=== PATIENT | female | born 1970 | race Caucasian/White ===

== ENCOUNTER 2018-10-25 02:11 | Emergency (ER) | payer MEDICARE, MEDICAID ==
[~2018-10-25] VITALS: Ht 157.5 cm; Wt 55.0 kg
[2018-10-25] MEDS ORDERED: dexamethasone 4mg tablet PO ONE (06:00)
[2018-10-25] MEDS ORDERED: albuterol 2.5 MG/3 ML nebule NEB ONE (06:00)
[2018-10-25] MEDS ORDERED: diphenhydrAMINE 25 MG/10 ML UD oral solution PO ONE (06:00)
[2018-10-25] MEDS ORDERED: ALBU6.7H INH (06:02)
[2018-10-25 07:20] VITALS: BP 135/81
== END 2018-10-25 07:23 | disposition home or self-care (01) ==
LOC: ER 02:14
DX: J04.0 Acute laryngitis (principal); F17.210 Nicotine dependence, cigarettes, uncomplicated; E11.9 Type 2 diabetes mellitus without complications; Z71.6 Tobacco abuse counseling; Z88.8 Allergy status to other drugs, medicaments and biological substances; Z79.899 Other long term (current) drug therapy; Z59.0 Homelessness; Z56.0 Unemployment, unspecified
CPT/HCPCS: 87081; 87880; 93005; 94640; 94760; 99284; 99406; J8540; Q0163

== ENCOUNTER 2019-07-08 11:36 | Emergency (ER) | payer MEDICARE, MEDICAID ==
[~2019-07-08] VITALS: Ht 157.5 cm; Wt 65.0 kg
[~2019-07-08 11:36] MED LIST: ALBU6.7H9 INH
[2019-07-08 12:23] VITALS: BP 133/64
[2019-07-08] MEDS ORDERED: gentamicin 0.1% topical ointment 15gm TP SCH (13:20)
== END 2019-07-08 14:49 | disposition home or self-care (01) ==
LOC: ER 11:37
DX: S01.81XD Laceration without foreign body of other part of head, subsequent encounter (principal); L97.229 Non-pressure chronic ulcer of left calf with unspecified severity; E11.9 Type 2 diabetes mellitus without complications; F17.200 Nicotine dependence, unspecified, uncomplicated; Z59.0 Homelessness; Z56.0 Unemployment, unspecified; Z88.8 Allergy status to other drugs, medicaments and biological substances; V49.88XD Car occupant (driver) (passenger) injured in other specified transport accidents, subsequent encounter
CPT/HCPCS: 99283

== ENCOUNTER 2020-01-17 17:32 | Emergency (ER) | payer MEDICARE, MEDICAID ==
[~2020-01-17] VITALS: Ht 154.9 cm; Wt 63.0 kg
[2020-01-17] MEDS ORDERED: clindamycin 600mg/D5W 50ml 50 ML IV STA (20:39)
[2020-01-17] MEDS ORDERED: dexamethasone sod phosphate 10mg/ml inj IV STA (20:39)
[2020-01-17] MEDS ORDERED: normal saline 1000ML IV soln IV ONE (20:40)
[2020-01-17 21:24] LABS: BASOPHILS # (AUTO) 0.1 X10'3 (0-0.2); BASOPHILS % (AUTO) 0.5 % (0-1); EOSINOPHILS # (AUTO) 0.1 X10'3 (0-0.9); HEMATOCRIT 41.9 % (35.0-45.0); HEMOGLOBIN 14.3 g/dl (12.0-16.0); LYMPHOCYTES # (AUTO) 1.3 X10'3 (1.1-4.8); LYMPHOCYTES % (AUTO) 8.9 % (21-51); MEAN CORPUSCULAR HEMOGLOBIN 27.6 PG (27.0-31.0); MEAN CORPUSCULAR VOLUME 81.1 FL (78-98); MEAN PLATELET VOLUME 8.2 FL (7.4-10.4); MONOCYTES % (AUTO) 6.9 % (2-12); NEUTROPHILS # (AUTO) 11.8 X10'3 (1.8-7.7); NEUTROPHILS % (AUTO) 82.7 % (42-75); PLATELET COUNT 272 X10'3 (140-440); RED BLOOD COUNT 5.17 X10'6 (4.20-5.60); WHITE BLOOD COUNT 14.2 X10'3 (4.5-11.0)
[2020-01-17 21:27] LABS: ALANINE AMINOTRANSFERASE 16 U/L (12-78); ALBUMIN 3.3 G/DL (3.4-5.0); ALBUMIN/GLOBULIN RATIO 0.8 (1.1-1.5); ALKALINE PHOSPHATASE 173 IU/L (46-116); ANION GAP 6 (8-16); ASPARTATE AMINO TRANSFERASE 8 U/L (10-37); BILIRUBIN,TOTAL 0.9 MG/DL (0.1-1.0); BLOOD UREA NITROGEN 9 MG/DL (7-18); BUN/CREATININE RATIO 9.9 (6.6-38.0); CALCIUM 9.1 MG/DL (8.5-10.1); CHLORIDE 100 MMOL/L (99-107); CREATININE 0.91 MG/DL (0.40-0.90); GLUCOSE 321 MG/DL (70-104); MAGNESIUM 1.8 MG/DL (1.5-2.4); POTASSIUM 3.7 MMOL/L (3.5-5.1); SODIUM 134 MMOL/L (135-145); TOTAL CARBON DIOXIDE 27.7 MMOL/L (24-32); TOTAL PROTEIN 7.4 G/DL (6.4-8.2); eGFR 66 ML/MIN
[2020-01-17] MEDS ORDERED: iohexol 300mg/ml 100ml inj. ONE (21:30)
[2020-01-17 21:44] LABS: CLARITY,URINE CLEAR (Clear); COLOR,URINE YELLOW (Yellow); GLUCOSE, URINE >=1000 mg/dl (Neg); KETONES,URINE TRACE mg/dl (Neg); LEUKOCYTE ESTERASE ,URINE NEGATIVE (Neg); NITRITES, URINE NEGATIVE (Neg); OCCULT BLOOD,URINE NEGATIVE (Neg); PROTEIN,URINE TRACE mg/dl (Neg)
[2020-01-17 22:03] LABS: UA COLLECTION TYPE CLN CATCH MIDSTREAM
[2020-01-17 22:04] LABS: BACTERIA,URINE FEW /HPF (Neg); RBC,URINE 0-2 /HPF (0-2); SQUAMOUS EPITHELIAL CELL,UR FEW /LPF (FEW); WBC,URINE 0-4 /HPF (0-4)
[2020-01-17 22:49] LABS: URINE AMPHETAMINE SCREEN POSITIVE (Neg); URINE BARBITUATE SCREEN NEGATIVE (Neg); URINE BENZODIAZEPINES SCREEN NEGATIVE (Neg); URINE CANNABINOID SCREEN NEGATIVE (Neg); URINE COCAINE SCREEN NEGATIVE (Neg); URINE METHADONE SCREEN NEGATIVE (Neg); URINE OPIATE SCREEN NEGATIVE (Neg); URINE PHENCYCLIDINE SCREEN NEGATIVE (Neg)
[2020-01-17] MEDS ORDERED: LIDOcaine Viscous 15ml cup MM ONE (22:55)
[2020-01-17] MEDS ORDERED: fentaNYL/PF 50MCG/1 ML 2ML syringe IV ONE (22:55)
[2020-01-17] MEDS ORDERED: LIDOcaine 1% W/epiNEPHrine 1:200,000 10ml vial IJ ONE (22:55)
[2020-01-18] MEDS ORDERED: ampicillin/sulbac 3gm/NS 100ml 100 ML IV STA (00:24)
[2020-01-18] MEDS ORDERED: NO HOME MEDS (00:36)
--- NOTE | 2020-01-18 00:36 | NUR ---
patient reports she takes no home meds
[2020-01-18] MEDS ORDERED: HYDR-4383 PO (00:52)
[2020-01-18] MEDS ORDERED: ONDA4TAB6 PO (00:52)
[2020-01-18] MEDS ORDERED: AMOX-422 PO (00:52)
--- NOTE | 2020-01-18 01:56 | NUR ---
GAVE PT ANOTHER BLANKET AND DR PALMER SAID I COULD GIVE HER WATER TO DRINK. I SET PT HOB BACK A LITTLE, GAVE HER A PILLOW AND PLACED TISSUES NEXT TO HER. I CLOSED HER DOORS SO SHE CAN REST.
--- NOTE | 2020-01-18 04:48 | NUR ---
pt has continued to sleep without any apparent distress.
[2020-01-18 06:03] VITALS: BP 133/83
== END 2020-01-18 06:04 | disposition home or self-care (01) ==
LOC: ER 17:34
DX: J36 Peritonsillar abscess (principal); E11.9 Type 2 diabetes mellitus without complications; Z59.0 Homelessness; Z56.0 Unemployment, unspecified; Z88.8 Allergy status to other drugs, medicaments and biological substances; Z79.2 Long term (current) use of antibiotics; Z79.899 Other long term (current) drug therapy
CPT/HCPCS: 36415; 42700; 70491; 71045; 80053; 80305; 81001; 83605; 83735; 84145; 85025; 87040; 93005; 96365; 96367; 96375; 99285; J1100; J3010; J7030; Q9967; J0295; J3490

== ENCOUNTER 2020-07-01 09:30 | Outpatient (CLI) | payer MEDICARE, MEDICAID ==
[~2020-07-01 09:30] MED LIST changes: -ALBU6.7H9 INH; +AMA1T PO; +CIPR-230 PO; +LACT1CAP26 PO; +LINA5TAB4 PO; +LISI10TA4 PO; +METF-950 PO
[2020-07-01] MEDS ORDERED: LIDOcaine 2% 5ml jelly ONE ×2 (10:00→11:48)
== END 2020-07-01 23:59 | disposition home or self-care (01) ==
LOC: WOUND CARE 09:30 → EDSTATUS 09:40 → WOUND CARE 23:59
PROVIDERS: ATTEND Nurse Practitioner
DX: T81.89XA Other complications of procedures, not elsewhere classified, initial encounter (principal); E11.621 Type 2 diabetes mellitus with foot ulcer; L97.512 Non-pressure chronic ulcer of other part of right foot with fat layer exposed; S90.811A Abrasion, right foot, initial encounter; E11.622 Type 2 diabetes mellitus with other skin ulcer; L98.492 Non-pressure chronic ulcer of skin of other sites with fat layer exposed; E11.69 Type 2 diabetes mellitus with other specified complication; M86.8X4 Other osteomyelitis, hand; E11.40 Type 2 diabetes mellitus with diabetic neuropathy, unspecified; E11.65 Type 2 diabetes mellitus with hyperglycemia; F17.200 Nicotine dependence, unspecified, uncomplicated; Z79.899 Other long term (current) drug therapy; Z90.710 Acquired absence of both cervix and uterus; Z88.8 Allergy status to other drugs, medicaments and biological substances; Z79.84 Long term (current) use of oral hypoglycemic drugs; X58.XXXA Exposure to other specified factors, initial encounter; Y93.89 Activity, other specified; Y92.89 Other specified places as the place of occurrence of the external cause; Y99.8 Other external cause status; Y83.8 Other surgical procedures as the cause of abnormal reaction of the patient, or of later complication, without mention of misadventure at the time of the procedure; Y92.238 Other place in hospital as the place of occurrence of the external cause
CPT/HCPCS: 82948; G0463

== ENCOUNTER 2020-07-09 12:12 | Inpatient (IN) | payer MEDICARE, MEDICAID ==
[~2020-07-09] VITALS: Ht 154.9 cm; Wt 60.8 kg
[2020-07-09] MEDS ORDERED: LIDOcaine 2% 5ml jelly ONE (13:16)
[2020-07-09] MEDS ORDERED: LIDOcaine 1%/PF 5ML 10 MG/ML VIAL ONE (13:16)
[2020-07-09] MEDS ORDERED: diphenhydrAMINE 25mg capsule PO PRN (15:35)
[2020-07-09] MEDS ORDERED: bisacodyl 10mg suppository rectal RC PRN (15:35)
[2020-07-09] MEDS ORDERED: acetaminophen 650mg rectal suppository RC PRN (15:35)
[2020-07-09] MEDS ORDERED: glucagon, human recombinant 1mg kit SUBCUT PRN (15:35)
[2020-07-09] MEDS ORDERED: HYDROcodone/acetaminophen 5mg/325mg tablet PO PRN (15:35)
[2020-07-09] MEDS ORDERED: mag hydrox/Alum hydrox/simeth 30ml oral suspension PO PRN (15:35)
[2020-07-09] MEDS ORDERED: metoclopramide 5 mg/ml inj IV PRN (15:35)
[2020-07-09] MEDS ORDERED: MESSAGE TO PHARMACY PO ONE (15:35)
[2020-07-09] MEDS ORDERED: potassium CL 10mEq/100ml bag 100 ML IV PRN ×2 (15:35)
[2020-07-09] MEDS ORDERED: dextrose ORAL solution 15 GM/59 ML bottle PO PRN ×2 (15:35)
[2020-07-09] MEDS ORDERED: HYDROcodone/acetaminophen 10/325mg tab PO PRN (15:35)
[2020-07-09] MEDS ORDERED: magnesium 2GM in 50ml NS 50 ML IV PRN (15:35)
[2020-07-09] MEDS ORDERED: ondansetron/PF 4mg/2ml inj IV PRN (15:35)
[2020-07-09] MEDS ORDERED: magnesium 4gm in 100ml NS 100 ML IV PRN (15:35)
[2020-07-09] MEDS ORDERED: acetaminophen 325mg tablet PO PRN ×2 (15:35)
[2020-07-09] MEDS ORDERED: magnesium Cl slow-release 64mg tablet PO PRN (15:35)
[2020-07-09] MEDS ORDERED: morphine 2 MG/ML inj. syringe IV PRN ×2 (15:35)
[2020-07-09] MEDS: cefepime 1GM/NS ADD-VANTAGE 100 ML IV SCH ×3 (15:35→19:42)
[2020-07-09] MEDS: normal saline 1000ml 1,000 ML IV SCH (15:35)
[2020-07-09] MEDS ORDERED: potassium Cl 20 mEq SR tablet PO PRN ×2 (15:35)
[2020-07-09] MEDS ORDERED: magnesium hydroxide 30ml (MOM) UD suspension PO PRN (15:35)
[2020-07-09] MEDS ORDERED: dextrose 50%-water 50ml dispensing syringe IV PRN ×2 (15:35)
[2020-07-09] MEDS ORDERED: vancomycin/NS 1 GM ADD-VANTAGE 250 ML X 1 DOSE IV ONE (15:55)
[2020-07-09 16:33] LABS: HEMOGLOBIN A1C 9.9 % (4.5-6.2); eGFR 89 ML/MIN
[2020-07-09 16:40] LABS: ALANINE AMINOTRANSFERASE 23 U/L (12-78); ALBUMIN 3.6 G/DL (3.4-5.0); ALBUMIN/GLOBULIN RATIO 0.9 (1.1-1.5); ALKALINE PHOSPHATASE 149 IU/L (46-116); ANION GAP 9 (8-16); ASPARTATE AMINO TRANSFERASE 9 U/L (10-37); BILIRUBIN,TOTAL 0.7 MG/DL (0.1-1.0); BLOOD UREA NITROGEN 17 MG/DL (7-18); BUN/CREATININE RATIO 25.8 (6.6-38.0); CHLORIDE 101 MMOL/L (99-107); CREATININE 0.66 MG/DL (0.40-0.90); ETHANOL < 0.010 GM/DL (0.0-0.010); GLUCOSE 280 MG/DL (70-104); SODIUM 137 MMOL/L (135-145); TOTAL CARBON DIOXIDE 27.3 MMOL/L (24-32); TOTAL PROTEIN 7.7 G/DL (6.4-8.2); eGFR > 90 ML/MIN
[2020-07-09 17:00] VITALS: BP 157/67
[2020-07-09] MEDS ORDERED: LINA5TAB4 PO (17:08)
[2020-07-09] MEDS ORDERED: ALBU18HF2 PO (17:08)
[2020-07-09] MEDS ORDERED: GLIM1TAB PO (17:08)
[2020-07-09] MEDS ORDERED: METF-436 PO (17:08)
[2020-07-09 17:25] LABS: BASOPHILS % (AUTO) 0.6 % (0-1); EOSINOPHILS # (AUTO) 0.1 X10'3 (0-0.9); EOSINOPHILS % (AUTO) 1.5 % (0-6); HEMATOCRIT 39.5 % (35.0-45.0); HEMOGLOBIN 13.3 g/dl (12.0-16.0); MEAN CORPUSCULAR HEMOGLOBIN 26.8 PG (27.0-31.0); MEAN CORPUSCULAR HGB CONC 33.6 g/dL (33.0-36.5); MEAN CORPUSCULAR VOLUME 79.8 FL (78-98); MEAN PLATELET VOLUME 8.3 FL (7.4-10.4); MONOCYTES # (AUTO) 0.5 X10'3 (0-0.9); NEUTROPHILS # (AUTO) 5.1 X10'3 (1.8-7.7); NEUTROPHILS % (AUTO) 74.9 % (42-75); PLATELET COUNT 321 X10'3 (140-440); RED BLOOD COUNT 4.95 X10'6 (4.20-5.60); RED CELL DISTRIBUTION WIDTH 13.9 % (11.5-14.5); WHITE BLOOD COUNT 6.8 X10'3 (4.5-11.0)
[2020-07-09 18:00] VITALS: BP 148/72
--- NOTE | 2020-07-09 18:52 | NUR ---
Problems reprioritized. Patient report given, questions answered & plan of care reviewed with CALVIN Escoto. Pt arrived to floor around 1630. A&O x4. IV placed, ABX running at this time. V/S 98.3, 97,16, 96%, 154/64.
[2020-07-09] MEDS: insulin Lispro (HumaLOG) vial - multi-dose SQ SCH (19:39)
[2020-07-09] MEDS: K and/or MAG REPLACEMENT MC SCH (20:00)
[2020-07-09] MEDS: insulin glargine (Lantus) pen - multi-dose SQ SCH (21:01)
[2020-07-09] MEDS: heparin, porcine 5000 units/ml vial SQ SCH (21:02)
[2020-07-10] VITALS: BP 132/77
[2020-07-10] MEDS: normal saline 1000ml 1,000 ML IV SCH ×3 (01:55→14:28)
[2020-07-10] MEDS ORDERED: vancomycin/NS 1 GM ADD-VANTAGE 250 ML X 1 DOSE IV SCH (04:00)
[2020-07-10 06:18] LABS: BASOPHILS % (AUTO) 0.8 % (0-1); EOSINOPHILS # (AUTO) 0.3 X10'3 (0-0.9); EOSINOPHILS % (AUTO) 4.4 % (0-6); HEMATOCRIT 39.3 % (35.0-45.0); HEMOGLOBIN 13.1 g/dl (12.0-16.0); LYMPHOCYTES # (AUTO) 1.4 X10'3 (1.1-4.8); LYMPHOCYTES % (AUTO) 24.4 % (21-51); MEAN CORPUSCULAR HEMOGLOBIN 26.8 PG (27.0-31.0); MEAN CORPUSCULAR HGB CONC 33.4 g/dL (33.0-36.5); MEAN CORPUSCULAR VOLUME 80.2 FL (78-98); MEAN PLATELET VOLUME 7.8 FL (7.4-10.4); MONOCYTES # (AUTO) 0.5 X10'3 (0-0.9); MONOCYTES % (AUTO) 8.8 % (2-12); NEUTROPHILS # (AUTO) 3.5 X10'3 (1.8-7.7); NEUTROPHILS % (AUTO) 61.6 % (42-75); PLATELET COUNT 285 X10'3 (140-440); RED CELL DISTRIBUTION WIDTH 14.2 % (11.5-14.5); WHITE BLOOD COUNT 5.7 X10'3 (4.5-11.0)
[2020-07-10 06:31] LABS: ALANINE AMINOTRANSFERASE 24 U/L (12-78); ALBUMIN/GLOBULIN RATIO 0.8 (1.1-1.5); ALKALINE PHOSPHATASE 118 IU/L (46-116); ANION GAP 6 (8-16); ASPARTATE AMINO TRANSFERASE 19 U/L (10-37); BILIRUBIN,TOTAL 0.5 MG/DL (0.1-1.0); BLOOD UREA NITROGEN 13 MG/DL (7-18); BUN/CREATININE RATIO 18.8 (6.6-38.0); CALCIUM 8.7 MG/DL (8.5-10.1); CHLORIDE 107 MMOL/L (99-107); CREATININE 0.69 MG/DL (0.40-0.90); GLUCOSE 131 MG/DL (70-104); MAGNESIUM 1.9 MG/DL (1.5-2.4); PHOSPHORUS 3.8 MG/DL (2.3-4.5); SODIUM 140 MMOL/L (135-145); TOTAL PROTEIN 6.9 G/DL (6.4-8.2); eGFR 90 ML/MIN
[2020-07-10 06:33] LABS: POTASSIUM 4.4 MMOL/L (3.5-5.1)
[2020-07-10] MEDS: cefepime 1GM/NS ADD-VANTAGE 100 ML IV SCH (07:24)
[2020-07-10] MEDS: K and/or MAG REPLACEMENT MC SCH ×2 (07:25→19:03)
[2020-07-10] MEDS: heparin, porcine 5000 units/ml vial SQ SCH ×2 (07:25→19:07)
[2020-07-10 07:40] VITALS: BP 141/82
[2020-07-10] MEDS: insulin Lispro (HumaLOG) vial - multi-dose SQ SCH ×3 (09:31→19:14)
[2020-07-10] MEDS: ceFAZolin 2gm in dextrose, iso 50 ML IV SCH ×2 (11:05→17:36)
--- NOTE | 2020-07-10 11:33 | NUR ---
PAGER ID: [phone] MESSAGE: Gianni Workman 350A: FYI. + blood culture left arm, aerobic bottle, gram+ cocci in clusters. thanks! maxine [id number]
[2020-07-10 11:39] LABS: CLARITY,URINE SLIGHTLY CLOUDY (Clear); COLOR,URINE YELLOW (Yellow); GLUCOSE, URINE NEGATIVE (Neg); KETONES,URINE NEGATIVE (Neg); LEUKOCYTE ESTERASE ,URINE NEGATIVE (Neg); NITRITES, URINE NEGATIVE (Neg); OCCULT BLOOD,URINE NEGATIVE (Neg); PH,URINE 5.5 (4.8-8.0); PROTEIN,URINE NEGATIVE (Neg); UROBILINOGEN,URINE 0.2 E.U/dL (0.2-1.0)
[2020-07-10 11:46] LABS: UA COLLECTION TYPE NON-SPECIFIED
[2020-07-10 11:52] LABS: URINE AMPHETAMINE SCREEN POSITIVE (Neg); URINE BARBITUATE SCREEN NEGATIVE (Neg); URINE BENZODIAZEPINES SCREEN NEGATIVE (Neg); URINE CANNABINOID SCREEN NEGATIVE (Neg); URINE COCAINE SCREEN NEGATIVE (Neg); URINE METHADONE SCREEN NEGATIVE (Neg); URINE OPIATE SCREEN NEGATIVE (Neg); URINE PHENCYCLIDINE SCREEN NEGATIVE (Neg)
[2020-07-10 11:53] LABS: MUCUS STRANDS FEW /LPF (Neg); SQUAMOUS EPITHELIAL CELL,UR MODERATE /LPF (FEW)
[2020-07-10 11:54] LABS: BACTERIA,URINE FEW /HPF (Neg); RBC,URINE 0-2 /HPF (0-2); WBC,URINE 0-4 /HPF (0-4)
[2020-07-10 12:06] VITALS: BP 124/75
--- NOTE | 2020-07-10 12:24 | NUR ---
Pt with T2DM, current A1c is 9.9%. Pt recently admitted and seen by RD 06/27 for extensive written and verbal protein and DM educations. A1c 10.3% at that time and RD contact information was provided. No further education warranted at this time. Pt currently on a CHO controlled diet documented with 100% PO intake. At last admit pt still with c/o hunger with 100% PO intake and agreed to double protein TID for satiety. Pt also agreed to mechanical soft diet with chopped meat d/t difficulty chewing d/t missing teeth and difficulty cutting food d/t left thumb injury. D/w dietary to resume previous meal preferences to optimize PO intake during admission. Will continue to follow. Addendum: 07/10/20 at [address] Amended: Links added.
[2020-07-10] MEDS ORDERED: MESSAGE TO NURSING IV ONE (15:55)
[2020-07-10] MEDS: vancomycin/NS 1 GM ADD-VANTAGE 250 ML IV SCH (15:57)
[2020-07-10 18:15] VITALS: BP 138/82
--- NOTE | 2020-07-10 18:21 | NUR ---
Problems reprioritized. Patient report given, questions answered & plan of care reviewed with CALVIN FIELD.
--- NOTE | 2020-07-10 18:21 | NUR ---
Patient in room [facility] 350. I have received report from CALVIN Kim and had the opportunity to ask questions and assume patient care.
[2020-07-10] MEDS: lactobacillus rhamnosus 10,000 MMU CELLS/CAPSULE PO SCH (19:07)
[2020-07-10] MEDS: insulin glargine (Lantus) pen - multi-dose SQ SCH (22:39)
[2020-07-11 00:15] VITALS: BP 116/66
[2020-07-11] MEDS: ceFAZolin 2gm in dextrose, iso 50 ML IV SCH ×3 (02:17→17:56)
[2020-07-11] MEDS: normal saline 1000ml 1,000 ML IV SCH ×2 (02:18→15:55)
[2020-07-11] MEDS ORDERED: VANCOMYCIN LEVEL IV ONE ×2 (03:30)
[2020-07-11 03:48] LABS: BASOPHILS % (AUTO) 0.8 % (0-1); EOSINOPHILS # (AUTO) 0.2 X10'3 (0-0.9); EOSINOPHILS % (AUTO) 4.2 % (0-6); HEMATOCRIT 39.3 % (35.0-45.0); HEMOGLOBIN 13.1 g/dl (12.0-16.0); LYMPHOCYTES # (AUTO) 1.7 X10'3 (1.1-4.8); LYMPHOCYTES % (AUTO) 32.6 % (21-51); MEAN CORPUSCULAR HEMOGLOBIN 26.8 PG (27.0-31.0); MEAN CORPUSCULAR HGB CONC 33.4 g/dL (33.0-36.5); MEAN CORPUSCULAR VOLUME 80.4 FL (78-98); MEAN PLATELET VOLUME 7.8 FL (7.4-10.4); MONOCYTES # (AUTO) 0.5 X10'3 (0-0.9); NEUTROPHILS # (AUTO) 2.8 X10'3 (1.8-7.7); NEUTROPHILS % (AUTO) 53.4 % (42-75); PLATELET COUNT 276 X10'3 (140-440); RED BLOOD COUNT 4.89 X10'6 (4.20-5.60); RED CELL DISTRIBUTION WIDTH 14.3 % (11.5-14.5); WHITE BLOOD COUNT 5.3 X10'3 (4.5-11.0)
[2020-07-11 04:01] LABS: ALANINE AMINOTRANSFERASE 15 U/L (12-78); ALBUMIN/GLOBULIN RATIO 0.8 (1.1-1.5); ALKALINE PHOSPHATASE 120 IU/L (46-116); ANION GAP 5 (8-16); ASPARTATE AMINO TRANSFERASE 10 U/L (10-37); BILIRUBIN,TOTAL 0.2 MG/DL (0.1-1.0); BLOOD UREA NITROGEN 16 MG/DL (7-18); BUN/CREATININE RATIO 19.3 (6.6-38.0); CALCIUM 8.7 MG/DL (8.5-10.1); CHLORIDE 106 MMOL/L (99-107); CREATININE 0.83 MG/DL (0.40-0.90); GLUCOSE 197 MG/DL (70-104); PHOSPHORUS 3.6 MG/DL (2.3-4.5); POTASSIUM 4.1 MMOL/L (3.5-5.1); SODIUM 140 MMOL/L (135-145); TOTAL CARBON DIOXIDE 29.4 MMOL/L (24-32); TOTAL PROTEIN 6.7 G/DL (6.4-8.2); VANCOMYCIN,TROUGH 11.1 UG/ML (6.0-14.0); eGFR 73 ML/MIN
[2020-07-11] MEDS: vancomycin/NS 1 GM ADD-VANTAGE 250 ML IV SCH (04:05)
--- NOTE | 2020-07-11 06:18 | NUR ---
Problems reprioritized. Patient report given, questions answered & plan of care reviewed with CALVIN Kim.
[2020-07-11 07:30] VITALS: BP 113/83
[2020-07-11] MEDS: heparin, porcine 5000 units/ml vial SQ SCH ×2 (07:31→20:36)
[2020-07-11] MEDS: lactobacillus rhamnosus 10,000 MMU CELLS/CAPSULE PO SCH ×2 (07:31→20:36)
[2020-07-11] MEDS: K and/or MAG REPLACEMENT MC SCH ×2 (07:31→20:00)
[2020-07-11] MEDS: insulin Lispro (HumaLOG) vial - multi-dose SQ SCH ×3 (08:18→18:09)
[2020-07-11 11:37] VITALS: BP 102/47
[2020-07-11] MEDS: VANCOmycin 1250MG/NS 250ml Bag 250 ML IV SCH (15:55)
--- NOTE | 2020-07-11 18:10 | NUR ---
Patient in room [facility] 350. I have received report from CHRIS SIMPSON and had the opportunity to ask questions and assume patient care. Addendum: 07/11/20 at 1902 by Chica Montenegro RN Amended: Links added.
--- NOTE | 2020-07-11 18:40 | NUR ---
Problems reprioritized. Patient report given, questions answered & plan of care reviewed with CALVIN Coto.
[2020-07-11 19:15] VITALS: BP 111/61
[2020-07-11] MEDS: insulin glargine (Lantus) pen - multi-dose SQ SCH (20:48)
--- NOTE | 2020-07-11 21:05 | NUR ---
pt took hs medications and covered with long acting insulin. teaching done on importance of taking her medications. dressings dry and intact.
--- NOTE | 2020-07-11 23:10 | NUR ---
resting eyes closed without changes at this time.
[2020-07-12] VITALS: BP 147/73
[2020-07-12] MEDS: ceFAZolin 2gm in dextrose, iso 50 ML IV SCH ×3 (02:11→20:10)
--- NOTE | 2020-07-12 02:13 | NUR ---
PT RESTING WITHOUT CHANGES.
--- NOTE | 2020-07-12 03:10 | NUR ---
resting without changes at this time.
[2020-07-12] MEDS: VANCOmycin 1250MG/NS 250ml Bag 250 ML IV SCH ×2 (03:36→16:05)
[2020-07-12] MEDS: normal saline 1000ml 1,000 ML IV SCH ×3 (03:37→23:35)
--- NOTE | 2020-07-12 03:42 | NUR ---
resting without changes.
[2020-07-12 05:55] LABS: BASOPHILS % (AUTO) 0.7 % (0-1); EOSINOPHILS # (AUTO) 0.2 X10'3 (0-0.9); EOSINOPHILS % (AUTO) 2.8 % (0-6); HEMATOCRIT 38.6 % (35.0-45.0); HEMOGLOBIN 12.9 g/dl (12.0-16.0); LYMPHOCYTES % (AUTO) 28.9 % (21-51); MEAN CORPUSCULAR HEMOGLOBIN 26.8 PG (27.0-31.0); MEAN CORPUSCULAR HGB CONC 33.5 g/dL (33.0-36.5); MEAN PLATELET VOLUME 8.1 FL (7.4-10.4); MONOCYTES # (AUTO) 0.5 X10'3 (0-0.9); MONOCYTES % (AUTO) 6.6 % (2-12); NEUTROPHILS # (AUTO) 4.2 X10'3 (1.8-7.7); PLATELET COUNT 289 X10'3 (140-440); RED BLOOD COUNT 4.82 X10'6 (4.20-5.60); WHITE BLOOD COUNT 6.9 X10'3 (4.5-11.0)
--- NOTE | 2020-07-12 06:09 | NUR ---
Problems reprioritized. Patient report given, questions answered & plan of care reviewed with jaen harrison. Addendum: 07/12/20 at 0610 by Chica Montenegro RN Amended: Links added.
[2020-07-12 06:27] LABS: ALANINE AMINOTRANSFERASE 16 U/L (12-78); ALBUMIN/GLOBULIN RATIO 0.8 (1.1-1.5); ALKALINE PHOSPHATASE 104 IU/L (46-116); ANION GAP 9 (8-16); ASPARTATE AMINO TRANSFERASE 12 U/L (10-37); BILIRUBIN,TOTAL 0.3 MG/DL (0.1-1.0); BLOOD UREA NITROGEN 15 MG/DL (7-18); BUN/CREATININE RATIO 22.7 (6.6-38.0); CALCIUM 9.3 MG/DL (8.5-10.1); CHLORIDE 108 MMOL/L (99-107); CREATININE 0.66 MG/DL (0.40-0.90); GLUCOSE 106 MG/DL (70-104); MAGNESIUM 1.9 MG/DL (1.5-2.4); PHOSPHORUS 4.4 MG/DL (2.3-4.5); POTASSIUM 3.9 MMOL/L (3.5-5.1); SODIUM 144 MMOL/L (135-145); TOTAL CARBON DIOXIDE 26.6 MMOL/L (24-32); TOTAL PROTEIN 6.7 G/DL (6.4-8.2); eGFR > 90 ML/MIN
[2020-07-12 07:00] VITALS: BP 120/88
[2020-07-12] MEDS: K and/or MAG REPLACEMENT MC SCH ×2 (08:00→20:00)
[2020-07-12] MEDS: lactobacillus rhamnosus 10,000 MMU CELLS/CAPSULE PO SCH ×2 (08:41→20:11)
[2020-07-12] MEDS: heparin, porcine 5000 units/ml vial SQ SCH ×2 (08:41→20:12)
[2020-07-12] MEDS: insulin Lispro (HumaLOG) vial - multi-dose SQ SCH ×3 (08:46→20:28)
[2020-07-12 11:00] VITALS: BP 123/59
--- NOTE | 2020-07-12 19:04 | NUR ---
Patient in room [facility] 350. I have received report from PASTORA SIMPSON and had the opportunity to ask questions and assume patient care. Addendum: 07/12/20 at 1905 by Chica Montenegro RN Amended: Links added.
[2020-07-12 20:00] VITALS: BP 119/52
[2020-07-12] MEDS: insulin glargine (Lantus) pen - multi-dose SQ SCH (20:30)
--- NOTE | 2020-07-12 21:00 | NUR ---
PT TEACHING DONE WITH HER ON THE INFECTION, AND IMPORTANCE OF STAYING ON TIME WITH HER MEDICATIONS AND TAKING THEM. THE IMPORTANCE OF KEEPING BLOOD SUGAR DOWN WHAT SNACKS ARE APPROPRIATE AND WHAT ISN'T. ACCUCHECK DONE AND 231 AND NOT PT HAD DRANK A VITAMIN DRINK AND EATING CHEESE STICKS. COVERAGE DONE.
--- NOTE | 2020-07-12 22:30 | NUR ---
RESTING NO CHANGES.
--- NOTE | 2020-07-13 00:34 | NUR ---
RESTING EYES CLOSED WITHOUT CHANGES.
[2020-07-13] MEDS: ceFAZolin 2gm in dextrose, iso 50 ML IV SCH ×3 (02:01→18:54)
--- NOTE | 2020-07-13 02:04 | NUR ---
resting no changes.
[2020-07-13] MEDS ORDERED: VANCOMYCIN LEVEL IV ONE (03:30)
[2020-07-13] MEDS: VANCOmycin 1250MG/NS 250ml Bag 250 ML IV SCH (04:42)
[2020-07-13] MEDS: normal saline 1000ml 1,000 ML IV SCH (04:42)
--- NOTE | 2020-07-13 05:33 | NUR ---
resting eyes closed without changes at this time.
[2020-07-13 05:39] LABS: BASOPHILS % (AUTO) 0.6 % (0-1); EOSINOPHILS # (AUTO) 0.2 X10'3 (0-0.9); EOSINOPHILS % (AUTO) 3.4 % (0-6); HEMATOCRIT 36.9 % (35.0-45.0); HEMOGLOBIN 12.6 g/dl (12.0-16.0); LYMPHOCYTES # (AUTO) 2.1 X10'3 (1.1-4.8); LYMPHOCYTES % (AUTO) 34.8 % (21-51); MEAN CORPUSCULAR HEMOGLOBIN 27.5 PG (27.0-31.0); MEAN CORPUSCULAR HGB CONC 34.2 g/dL (33.0-36.5); MEAN CORPUSCULAR VOLUME 80.4 FL (78-98); MEAN PLATELET VOLUME 8.1 FL (7.4-10.4); MONOCYTES # (AUTO) 0.5 X10'3 (0-0.9); MONOCYTES % (AUTO) 8.4 % (2-12); NEUTROPHILS # (AUTO) 3.2 X10'3 (1.8-7.7); NEUTROPHILS % (AUTO) 52.8 % (42-75); PLATELET COUNT 249 X10'3 (140-440); RED BLOOD COUNT 4.59 X10'6 (4.20-5.60); RED CELL DISTRIBUTION WIDTH 14.2 % (11.5-14.5)
[2020-07-13 05:45] LABS: ALANINE AMINOTRANSFERASE 26 U/L (12-78); ALBUMIN/GLOBULIN RATIO 0.9 (1.1-1.5); ALKALINE PHOSPHATASE 103 IU/L (46-116); ANION GAP 7 (8-16); ASPARTATE AMINO TRANSFERASE 26 U/L (10-37); BILIRUBIN,TOTAL 0.3 MG/DL (0.1-1.0); BLOOD UREA NITROGEN 16 MG/DL (7-18); BUN/CREATININE RATIO 26.2 (6.6-38.0); CALCIUM 9.6 MG/DL (8.5-10.1); CHLORIDE 106 MMOL/L (99-107); CREATININE 0.61 MG/DL (0.40-0.90); GLUCOSE 146 MG/DL (70-104); POTASSIUM 3.9 MMOL/L (3.5-5.1); SODIUM 142 MMOL/L (135-145); TOTAL CARBON DIOXIDE 28.6 MMOL/L (24-32); TOTAL PROTEIN 6.5 G/DL (6.4-8.2); eGFR > 90 ML/MIN
[2020-07-13 05:48] LABS: MAGNESIUM 1.9 MG/DL (1.5-2.4); PHOSPHORUS 4.4 MG/DL (2.3-4.5); VANCOMYCIN,TROUGH 13.2 UG/ML (6.0-14.0)
--- NOTE | 2020-07-13 06:11 | NUR ---
Problems reprioritized. Patient report given, questions answered & plan of care reviewed with ADAM harrison. Addendum: 07/13/20 at 0613 by Chica Montenegro RN Amended: Links added.
--- NOTE | 2020-07-13 06:51 | NUR ---
Patient in room [facility] 350. I have received report from CALVIN Coto and had the opportunity to ask questions and assume patient care.
[2020-07-13 08:00] VITALS: BP 124/73
[2020-07-13] MEDS: K and/or MAG REPLACEMENT MC SCH ×2 (08:00→19:14)
[2020-07-13] MEDS: heparin, porcine 5000 units/ml vial SQ SCH ×2 (08:26→18:55)
[2020-07-13] MEDS: lactobacillus rhamnosus 10,000 MMU CELLS/CAPSULE PO SCH ×2 (08:27→18:55)
[2020-07-13] MEDS: insulin Lispro (HumaLOG) vial - multi-dose SQ SCH ×3 (08:34→20:32)
[2020-07-13 11:00] VITALS: BP 125/76
--- NOTE | 2020-07-13 18:32 | NUR ---
Patient in room [facility] 356. I have received report from ADAM SIMPSON and had the opportunity to ask questions and assume patient care. Addendum: 07/13/20 at 1832 by Chica Montenegro RN Amended: Links added.
--- NOTE | 2020-07-13 18:52 | NUR ---
Problems reprioritized. Patient report given, questions answered & plan of care reviewed with CALVIN Coto.
--- NOTE | 2020-07-13 19:19 | NUR ---
ABX STARTED BUT IV STARTED LEAKING SO STOPPED IT UNTIL NEW IV OBTAINED.
[2020-07-13 20:00] VITALS: BP 105/61
--- NOTE | 2020-07-13 20:10 | NUR ---
PT TO THE SHOWER AFTER HS MEDICATIONS DONE. PT A/O TEACHING DONE REGARDING HER BLOOD SUGAR OF 265 BS AND PT SIGNIFICANT OTHER BROUGHT IN STRING CHEESE AND [employer] PEANUT BUTTER STRAWBERRY JELLY SANDWICHES. NOTED SANDWICHES 210 CALORIES AND 10 GRAMS OF SUGAR. PT TEACHING DONE REGARDING IT AND INFORMED IT HAS TOO MUCH SUGAR FOR HER THAT THE STRING CHEESE IS OK AND SHE IS BETTER OFF WITH PLAIN SUGAR FREE PEANUT BUTTER LIKE SKIPPY, CASHEW BUTTER OR ALMOND BUTTER WITHOUT SUGAR. SHE HAS NO TEETH SO UNABLE TO EAT RAW VEGETABLES. TOLD HER SHE COULD HAVE ROASTED CHICKEN. EXPLAINED WHERE HER WOUND IS IN COMPARISON TO HER HEART AND THE IMPORTANCE OF TREATMENT AND STAYING ON THE MEDICATIONS AND WITHOUT IT WILL ONLY BE WORSE AND WILL BE LIFE THREATENING.
[2020-07-13] MEDS: insulin glargine (Lantus) pen - multi-dose SQ SCH (20:30)
--- NOTE | 2020-07-13 21:50 | NUR ---
X2 RN'S ATTEMPTED IV STARTS GOT X5 THEM BUT VEIN GIVES OUT EACH TIME.
--- NOTE | 2020-07-13 22:20 | NUR ---
6TH STICK 3RD RN NEW IV STARTED LEFT UPPER ARM.
[2020-07-13 23:37] VITALS: BP 124/87
--- NOTE | 2020-07-14 00:20 | NUR ---
PT RESTING WITHOUT S&S OF DISTRESS AT THIS TIME.
[2020-07-14] MEDS: ceFAZolin 2gm in dextrose, iso 50 ML IV SCH ×3 (01:54→17:53)
--- NOTE | 2020-07-14 01:58 | NUR ---
RESTING EYES CLOSED WITHOUT CHANGES.
--- NOTE | 2020-07-14 02:16 | NUR ---
RESTING EYES CLOSED NO CHANGES.
--- NOTE | 2020-07-14 04:00 | NUR ---
PT RESTING EYES CLOSED WITHOUT CHANGES.
--- NOTE | 2020-07-14 06:07 | NUR ---
Problems reprioritized. Patient report given, questions answered & plan of care reviewed with J LUIS SIMPSON. Addendum: 07/14/20 at 0608 by Chica Montenegro RN Amended: Links added.
[2020-07-14 06:21] LABS: LYMPHOCYTES # (AUTO) 2.1 X10'3 (1.1-4.8); MEAN PLATELET VOLUME 8.2 FL (7.4-10.4); RED BLOOD COUNT 4.84 X10'6 (4.20-5.60)
[2020-07-14 06:23] LABS: BASOPHILS % (AUTO) 0.6 % (0-1); EOSINOPHILS # (AUTO) 0.2 X10'3 (0-0.9); EOSINOPHILS % (AUTO) 2.8 % (0-6); HEMATOCRIT 38.7 % (35.0-45.0); LYMPHOCYTES % (AUTO) 29.8 % (21-51); MEAN CORPUSCULAR HEMOGLOBIN 26.8 PG (27.0-31.0); MEAN CORPUSCULAR HGB CONC 33.5 g/dL (33.0-36.5); MONOCYTES # (AUTO) 0.7 X10'3 (0-0.9); MONOCYTES % (AUTO) 10.5 % (2-12); NEUTROPHILS % (AUTO) 56.3 % (42-75); PLATELET COUNT 264 X10'3 (140-440); RED CELL DISTRIBUTION WIDTH 14.2 % (11.5-14.5); WHITE BLOOD COUNT 7.1 X10'3 (4.5-11.0)
[2020-07-14 06:26] LABS: ALANINE AMINOTRANSFERASE 45 U/L (12-78); ALBUMIN 3.2 G/DL (3.4-5.0); ALBUMIN/GLOBULIN RATIO 0.8 (1.1-1.5); ALKALINE PHOSPHATASE 94 IU/L (46-116); ANION GAP 7 (8-16); ASPARTATE AMINO TRANSFERASE 46 U/L (10-37); BILIRUBIN,TOTAL 0.3 MG/DL (0.1-1.0); BLOOD UREA NITROGEN 19 MG/DL (7-18); BUN/CREATININE RATIO 26.4 (6.6-38.0); CALCIUM 9.6 MG/DL (8.5-10.1); CHLORIDE 108 MMOL/L (99-107); CREATININE 0.72 MG/DL (0.40-0.90); GLUCOSE 136 MG/DL (70-104); PHOSPHORUS 4.8 MG/DL (2.3-4.5); POTASSIUM 4.2 MMOL/L (3.5-5.1); SODIUM 143 MMOL/L (135-145); TOTAL CARBON DIOXIDE 27.8 MMOL/L (24-32); eGFR 86 ML/MIN
--- NOTE | 2020-07-14 06:33 | NUR ---
Patient in room [facility] 356. I have received report from CALVIN Coto and had the opportunity to ask questions and assume patient care.
[2020-07-14 07:30] VITALS: BP 134/78
[2020-07-14] MEDS: K and/or MAG REPLACEMENT MC SCH ×2 (08:00→19:12)
[2020-07-14] MEDS: lactobacillus rhamnosus 10,000 MMU CELLS/CAPSULE PO SCH ×2 (08:21→19:15)
[2020-07-14] MEDS: heparin, porcine 5000 units/ml vial SQ SCH ×2 (08:21→19:16)
[2020-07-14] MEDS: insulin Lispro (HumaLOG) vial - multi-dose SQ SCH ×3 (08:23→19:23)
[2020-07-14 11:00] VITALS: BP 119/75
--- NOTE | 2020-07-14 12:36 | NUR ---
Initial: Pt presented to wound care clinic after discharge for prior I&D and was noted to have worsening infection of the left thumb, per H&P. Noted pt does not take medications and continues meth abuse prior to this admit, per EMR. Pt has full thickness wound to L thumb with noted purulence, per WOC note. Pt PO intake on cho controlled/mechanical soft diet with chopped meat and double protein TID 100% average meals, meeting estimated nutrient needs for wound healing. Last BM 07/09, refusing MoM. Recommend power pudding with next meal, dietary aware. Will continue to monitor for nutrient needs. Recs: 1) Continue mechanical soft/chopped meat/cho controlled diet double protein TID 2) Routine bowel care, trial power pudding at dinner 3) Scaled wt per rx Addendum: 07/14/20 at [address] Amended: Links added. Addendum: 07/14/20 at [address] [facility] Valero
--- NOTE | 2020-07-14 12:45 | NUR ---
Dressing to left thumb changed per written orders. Tiffanie ROGERS at bedside during dressing change to assess current wound status.
[2020-07-14] MEDS ORDERED: FLU VACC QS2020-21(6MOS UP)/PF 60 MCG/0.5 ML SYRINGE IMVAC ONE (15:00)
--- NOTE | 2020-07-14 18:11 | NUR ---
Problems reprioritized. Patient report given, questions answered & plan of care reviewed with CALVIN Paulino.
[2020-07-14 18:15] VITALS: BP 111/72
--- NOTE | 2020-07-14 18:45 | NUR ---
Patient in room [facility] 356. I have received report from CALVIN Roca and had the opportunity to ask questions and assume patient care.
[2020-07-14] MEDS: insulin glargine (Lantus) pen - multi-dose SQ SCH (22:29)
[2020-07-15 00:15] VITALS: BP 112/57
[2020-07-15] MEDS: ceFAZolin 2gm in dextrose, iso 50 ML IV SCH ×3 (02:08→17:32)
--- NOTE | 2020-07-15 06:02 | NUR ---
Problems reprioritized. Patient report given, questions answered & plan of care reviewed with CALVIN Roca.
--- NOTE | 2020-07-15 06:25 | NUR ---
Patient in room [facility] 356. I have received report from CALVIN Paulino and had the opportunity to ask questions and assume patient care.
[2020-07-15 08:00] VITALS: BP 121/69
[2020-07-15] MEDS: lactobacillus rhamnosus 10,000 MMU CELLS/CAPSULE PO SCH ×2 (08:30→19:12)
[2020-07-15] MEDS: heparin, porcine 5000 units/ml vial SQ SCH ×2 (08:30→19:12)
[2020-07-15] MEDS: insulin Lispro (HumaLOG) vial - multi-dose SQ SCH ×3 (08:34→19:17)
--- NOTE | 2020-07-15 08:42 | NUR ---
DM consult: Patient's A1c has already been addressed, see below. Pt with T2DM, current A1c is 9.9%. Pt recently admitted and seen by RD 06/27 for extensive written and verbal protein and DM educations. A1c 10.3% at that time and RD contact information was provided. No further education warranted at this time. Pt currently on a CHO controlled diet documented with 100% PO intake. At last admit pt still with c/o hunger with 100% PO intake and agreed to double protein TID for satiety. Pt also agreed to mechanical soft diet with chopped meat d/t difficulty chewing d/t missing teeth and difficulty cutting food d/t left thumb injury. D/w dietary to resume previous meal preferences to optimize PO intake during admission. Will continue to follow. Addendum: 07/15/20 at [address] Amended: Links added.
[2020-07-15 12:00] VITALS: BP 136/73
[2020-07-15 18:00] VITALS: BP 144/66
--- NOTE | 2020-07-15 18:10 | NUR ---
Patient in room [facility] 356B. I have received report from CALVIN Roca and had the opportunity to ask questions and assume patient care.
--- NOTE | 2020-07-15 18:10 | NUR ---
Problems reprioritized. Patient report given, questions answered & plan of care reviewed with CALVIN Roman.
[2020-07-15] MEDS: K and/or MAG REPLACEMENT MC SCH (20:00)
[2020-07-15] MEDS: insulin glargine (Lantus) pen - multi-dose SQ SCH (22:02)
[2020-07-16] VITALS: BP 124/75
[2020-07-16] MEDS: ceFAZolin 2gm in dextrose, iso 50 ML IV SCH ×3 (02:27→17:20)
--- NOTE | 2020-07-16 06:58 | NUR ---
Problems reprioritized. Patient report given, questions answered & plan of care reviewed with CALVIN Alexis.
[2020-07-16 07:24] VITALS: BP 112/65
[2020-07-16] MEDS: K and/or MAG REPLACEMENT MC SCH ×2 (08:00→20:00)
[2020-07-16] MEDS: heparin, porcine 5000 units/ml vial SQ SCH ×2 (08:42→20:46)
[2020-07-16] MEDS: lactobacillus rhamnosus 10,000 MMU CELLS/CAPSULE PO SCH ×2 (08:42→20:45)
[2020-07-16 11:00] VITALS: BP 106/63
--- NOTE | 2020-07-16 13:04 | NUR ---
no labs today
[2020-07-16] MEDS: insulin Lispro (HumaLOG) vial - multi-dose SQ SCH ×2 (14:20→20:56)
[2020-07-16 18:00] VITALS: BP 120/66
--- NOTE | 2020-07-16 18:30 | NUR ---
Patient in room [facility] 356. I have received report from Vanesa SIMPSON and had the opportunity to ask questions and assume patient care.
--- NOTE | 2020-07-16 19:09 | NUR ---
Problems reprioritized. Patient report given, questions answered & plan of care reviewed with Brittany SIMPSON.
[2020-07-16] MEDS: insulin glargine (Lantus) pen - multi-dose SQ SCH (20:55)
[2020-07-17] VITALS: BP 142/74
[2020-07-17] MEDS: ceFAZolin 2gm in dextrose, iso 50 ML IV SCH ×2 (01:30→10:06)
--- NOTE | 2020-07-17 06:28 | NUR ---
Problems reprioritized. Patient report given, questions answered & plan of care reviewed with Tiffanie SIMPSON.
--- NOTE | 2020-07-17 06:35 | NUR ---
Patient in room [facility] 356. I have received report from CALVIN Soto and had the opportunity to ask questions and assume patient care.
[2020-07-17 07:00] VITALS: BP 114/65
[2020-07-17] MEDS: lactobacillus rhamnosus 10,000 MMU CELLS/CAPSULE PO SCH (07:51)
[2020-07-17] MEDS: heparin, porcine 5000 units/ml vial SQ SCH (07:51)
[2020-07-17] MEDS: K and/or MAG REPLACEMENT MC SCH (08:00)
[2020-07-17] MEDS: insulin Lispro (HumaLOG) vial - multi-dose SQ SCH ×2 (09:16→13:28)
--- NOTE | 2020-07-17 10:20 | NUR ---
FLUSHED IV AND HUNG ABX
[2020-07-17 11:00] VITALS: BP 124/60
--- NOTE | 2020-07-17 12:39 | NUR ---
[place] with case management is setting up an appointment for patient for Sunday 07/[address] Cerda request.
[2020-07-17] MEDS ORDERED: LACT1CAP26 PO (13:43)
== END 2020-07-17 15:29 | disposition home health service (06) | DRG 638 ==
LOC: WOUND CARE 12:12 → SUR 3N 15:15 → UNDOADMIN 15:15 → SUR 3N 15:33
PROVIDERS: ADMIT Family Medicine; ATTEND Family Medicine
DX: E11.69 Type 2 diabetes mellitus with other specified complication (principal); L02.512 Cutaneous abscess of left hand; M86.8X4 Other osteomyelitis, hand; F10.10 Alcohol abuse, uncomplicated; F15.10 Other stimulant abuse, uncomplicated; F17.200 Nicotine dependence, unspecified, uncomplicated; E11.65 Type 2 diabetes mellitus with hyperglycemia; Z56.0 Unemployment, unspecified; Z77.120 Contact with and (suspected) exposure to mold (toxic); Z90.710 Acquired absence of both cervix and uterus; Z91.19 Patient's noncompliance with other medical treatment and regimen; Z79.84 Long term (current) use of oral hypoglycemic drugs; Z88.8 Allergy status to other drugs, medicaments and biological substances; Z71.6 Tobacco abuse counseling; Z71.41 Alcohol abuse counseling and surveillance of alcoholic; Z71.51 Drug abuse counseling and surveillance of drug abuser; Z79.899 Other long term (current) drug therapy
CPT/HCPCS: 11042; 36415; 36416; 80053; 80202; 80305; 80320; 81001; 82565; 82948; 83036; 83605; 83735; 84100; 84145; 85025; 87040; 87077; 87081; 87186; G0378; J0692; J1644; J1815; J3370; J7030

== ENCOUNTER 2020-07-24 12:10 | Outpatient (CLI) | payer MEDICARE, MEDICAID ==
[~2020-07-24 12:10] MED LIST changes: +ALBU18HF2 PO; -AMA1T PO; -CIPR-230 PO; +GLIM1TAB PO; -LISI10TA4 PO; +METF-436 PO; -METF-950 PO
[2020-07-24] MEDS ORDERED: LIDOcaine 1% w/epiNEPHrine 1:200,000 30ml vial ONE (12:39)
[2020-07-24] MEDS ORDERED: LIDOcaine 2% 5ml jelly ONE (12:39)
== END 2020-07-24 23:59 | disposition home or self-care (01) ==
LOC: WOUND CARE 12:10
PROVIDERS: ATTEND Nurse Practitioner
DX: T81.89XD Other complications of procedures, not elsewhere classified, subsequent encounter (principal); L02.512 Cutaneous abscess of left hand; E11.622 Type 2 diabetes mellitus with other skin ulcer; L98.492 Non-pressure chronic ulcer of skin of other sites with fat layer exposed; E11.621 Type 2 diabetes mellitus with foot ulcer; L97.512 Non-pressure chronic ulcer of other part of right foot with fat layer exposed; E11.40 Type 2 diabetes mellitus with diabetic neuropathy, unspecified; E11.65 Type 2 diabetes mellitus with hyperglycemia; M86.8X4 Other osteomyelitis, hand; F10.10 Alcohol abuse, uncomplicated; F15.10 Other stimulant abuse, uncomplicated; F17.200 Nicotine dependence, unspecified, uncomplicated; Z56.0 Unemployment, unspecified; Z77.120 Contact with and (suspected) exposure to mold (toxic); Z90.710 Acquired absence of both cervix and uterus; Z91.19 Patient's noncompliance with other medical treatment and regimen; Z79.84 Long term (current) use of oral hypoglycemic drugs; Z88.8 Allergy status to other drugs, medicaments and biological substances; Z71.6 Tobacco abuse counseling; Z71.41 Alcohol abuse counseling and surveillance of alcoholic; Z71.51 Drug abuse counseling and surveillance of drug abuser; Z79.899 Other long term (current) drug therapy; Y83.8 Other surgical procedures as the cause of abnormal reaction of the patient, or of later complication, without mention of misadventure at the time of the procedure
CPT/HCPCS: 11042

== ENCOUNTER 2020-07-29 12:14 | Outpatient (CLI) | payer MEDICARE, MEDICAID ==
[2020-07-29] MEDS ORDERED: LIDOcaine 2% 5ml jelly ONE (12:53)
[2020-07-29] MEDS ORDERED: hydrocortisone 1% cream 28gm TP ONE (13:26)
[2020-07-29 13:43] LABS: BASOPHILS # (AUTO) 0.1 X10'3 (0-0.2); BASOPHILS % (AUTO) 0.8 % (0-1); EOSINOPHILS # (AUTO) 0.2 X10'3 (0-0.9); EOSINOPHILS % (AUTO) 2.7 % (0-6); LYMPHOCYTES # (AUTO) 1.8 X10'3 (1.1-4.8); LYMPHOCYTES % (AUTO) 23.3 % (21-51); MEAN CORPUSCULAR HEMOGLOBIN 27.2 PG (27.0-31.0); MEAN CORPUSCULAR HGB CONC 33.6 g/dL (33.0-36.5); MEAN CORPUSCULAR VOLUME 80.8 FL (78-98); MEAN PLATELET VOLUME 7.7 FL (7.4-10.4); MONOCYTES # (AUTO) 0.6 X10'3 (0-0.9); MONOCYTES % (AUTO) 7.4 % (2-12); NEUTROPHILS # (AUTO) 5.2 X10'3 (1.8-7.7); NEUTROPHILS % (AUTO) 65.8 % (42-75); PRE OP HEMATOCRIT 40.1 % (35.0-45.0); PRE OP HEMOGLOBIN 13.5 g/dL (12.0-16.0); PRE OP PLATELET COUNT 281 X10'3 (140-440); RED BLOOD COUNT 4.97 X10'6 (4.20-5.60); RED CELL DISTRIBUTION WIDTH 14.7 % (11.5-14.5)
[2020-07-29 13:59] LABS: ALBUMIN 3.6 G/DL (3.4-5.0); ALKALINE PHOSPHATASE 107 IU/L (46-116); BLOOD UREA NITROGEN 26 MG/DL (7-18); C-REACTIVE PROTEIN 0.12 MG/DL (0.0-0.5); CALCIUM 9.5 MG/DL (8.5-10.1); CHLORIDE 107 MMOL/L (99-107); CREATININE 0.65 MG/DL (0.40-0.90); PRE OP ALT 19 U/L (30-65); PRE OP ANION GAP 9 (8-16); PRE OP AST 12 U/L (10-37); PRE OP BILIRUB, TOTAL 0.4 MG/DL (0.0-1.0); PRE OP GLUCOSE 107 MG/DL (70-104); PRE OP POTASSIUM 4.1 MMOL/L (3.4-5.1); PRE OP SODIUM 141 MMOL/L (135-145); TOTAL PROTEIN 7.3 G/DL (6.4-8.2); eGFR > 90 ML/MIN
[2020-07-29 14:09] LABS: HEMOGLOBIN A1C 8.1 % (4.5-6.2)
== END 2020-07-29 23:59 | disposition home or self-care (01) ==
LOC: WOUND CARE 12:14
PROVIDERS: ATTEND Nurse Practitioner
DX: T81.89XD Other complications of procedures, not elsewhere classified, subsequent encounter (principal); L02.512 Cutaneous abscess of left hand; E11.622 Type 2 diabetes mellitus with other skin ulcer; L98.492 Non-pressure chronic ulcer of skin of other sites with fat layer exposed; E11.621 Type 2 diabetes mellitus with foot ulcer; L97.512 Non-pressure chronic ulcer of other part of right foot with fat layer exposed; E11.40 Type 2 diabetes mellitus with diabetic neuropathy, unspecified; E11.65 Type 2 diabetes mellitus with hyperglycemia; M86.8X4 Other osteomyelitis, hand; F10.10 Alcohol abuse, uncomplicated; F15.10 Other stimulant abuse, uncomplicated; F17.200 Nicotine dependence, unspecified, uncomplicated; Z77.120 Contact with and (suspected) exposure to mold (toxic); Z90.710 Acquired absence of both cervix and uterus; Z91.19 Patient's noncompliance with other medical treatment and regimen; Z79.84 Long term (current) use of oral hypoglycemic drugs; Z71.6 Tobacco abuse counseling; Z71.41 Alcohol abuse counseling and surveillance of alcoholic; Z71.51 Drug abuse counseling and surveillance of drug abuser; Z79.899 Other long term (current) drug therapy; Y83.8 Other surgical procedures as the cause of abnormal reaction of the patient, or of later complication, without mention of misadventure at the time of the procedure
CPT/HCPCS: 11043; 36415; 80053; 83036; 85025; 85651; 86140